=== PATIENT | male | born 1975 | race Caucasian/White ===

== ENCOUNTER 2017-10-02 08:54 | Inpatient (IN) | payer BC ==
[~2017-10-02] VITALS: Ht 177.8 cm; Wt 120.8 kg
--- NOTE | ~2017-10-02 | PR ---
[place], [place] PROGRESS NOTE [id number] UNIT #: [id number] ROOM: 408 DOCTOR: MARILU GOFF MD BIRTHDATE: [birth year] DOS: 10/02/2017 SUBJECTIVE: The patient was seen by Dr. Love yesterday. The patient is paced rhythm. Blood pressure is 115/74. Admitted with a syncopal episode. He is not orthostatic. Hemodynamically stable. The patient had some nausea also. Does not smoke. Does not drink alcohol. He is alert and oriented x3. REVIEW OF SYSTEMS: Noncontributory. A 6-8 systems reviewed. OBJECTIVE: NECK: Supple, no JVD. LUNGS: Diminished breath sounds. HEART: Heart sounds regular. PLAN: Pacemaker appeared to be functioning appropriately. Hemodynamically stable. The patient is to continue the interrogation as ordered. LABORATORY DATA: Hemoglobin 13.7 and hematocrit 26.6. Electrolytes are pending. IMPRESSION: Syncopal episode, etiology is unclear. Pacemaker appears to be functioning normally. ____ not orthostatic. We will follow up. MARILU GOFF MD CM:PNTRANS [id number] MARLIU GOFF MD 10/03/17 1444 interface
--- NOTE | ~2017-10-02 | CON ---
[place], [place] REPORT OF CONSULTATION NAME: CAROLE SHEPPARD [facility] #: [id number] UNIT #: [id number] ROOM: 408 DOCTOR: SAMANTHA RILEY MD BIRTHDATE: [birth year] DOS: 10/02/2017 HISTORY OF PRESENT ILLNESS: This is a 42-year-old -[place] man who had sick sinus syndrome. He had a long asystolic pause with severe bradycardia and in 10/08/2010 a dual chamber [employer] pacemaker was implanted and he had done well. He had lost insurance a few years ago and not had his device interrogated at all. He had been feeling very well without any obvious symptoms whatsoever. However, he woke up this morning, had nausea. He vomited and then later had two watery stools and had fair amount of stool. He had no abdominal pain. He stood up and had a little warning and passed out. There was some lightheadedness and little dizziness. He did not sweat and had no nausea afterwards. Since he has been in the hospital, he has been fine. He does not recall any palpitations, any chest pain or dizziness or weakness. SOCIAL HISTORY: He does not smoke, not does he drink alcoholic beverages and has never used illicit drugs. He works as a dedicated driver. MEDICATIONS: None. PHYSICAL EXAMINATION: GENERAL: This revealed a patient who is very pleasant, alert, oriented, moderately obese. No anemia or thyromegaly at present. VITAL SIGNS: Pulse is 64 and regular, blood pressure 120/75. NECK: Normal JVP. No carotid bruit. HEART: His present cardiac auscultation is unremarkable. EXTREMITIES: There is no edema in the lower extremity. Pedal pulses are fine. RESPIRATORY: Lungs are clear to auscultation. LABORATORY DATA: Unremarkable. DIAGNOSTIC STUDIES: An ECG on admission demonstrated normal sinus rhythm at 67 beats per minute and was minimal criteria for LVH, but no pacemaker activity. The monitor here shows pacing at 60 beats per minute. The device was interrogated and elective replacement period is 6 to 12 months, i.e. end of life. IMPRESSION: I think this patient lost consciousness because of volume depletion from vomiting, but more ____ from diarrhea. Pacemaker is functioning fine and from cardiac standpoint, he should be just ambulated and may be discharged home. His pacemaker needs a closer followup, i.e. interrogation every 2 to 3 months, so that generator can be replaced at the appropriate time. I discussed this with the patient. I thank you for this consult. [place], [place] REPORT OF CONSULTATION NAME: CAROLE SHEPPARD UNIT #: [id number] ROOM: [facility] DOCTOR: SAMANTHA RILEY MD BIRTHDATE: [birth year] SAMANTHA RILEY MD CM:CONSTR:REPORT OF CONSULTATION 01 10/02/179 interface
[~2017-10-02 08:54] MED LIST: AMBIEN10 M1 PO; AMOXICILLIN500 M2 PO; ANAPROX DS550 MG PO; AUGMENTIN 875875 MG PO; B12,B-12,B 12500 MC1 PO; CATAFLAM50 MG PO; CLARITIN10 MG PO; DAYPRO600 M1 PO; DEPAKOTE125 MG PO; DOXYCYCLINE100 M2 PO; FLEXERIL10 MG PO; FLONASE 0.05% 121 EA NAS; IBU800 MG PO; KEFLEX500 MG PO; LOMOTIL 0.025 M1 TA1 PO; LOPRESSOR25 MG PO; MOTRIN800 MG PO; Motrin,Rufen800 MG PO; NAPROSYN500 MG PO; NKHM; NORCO 10-325 T1 EACH PO; PHENERGAN W/ COD5 ML PO; PREDNICOT20 MG PO; ROBAXIN750 MG PO; SERTRALINE HCL50 MG PO; TESSALON PERLE200 MG PO; TRAMADOL HCL50 MG PO; VIBRAMYCIN100 MG PO; VICO10300 PO; VICODIN 5/500 505 MG PO; VICODIN 500 MG-1 TAB PO; VITAMIN B12 1541 TAB PO; VITAMIN D1000 IU PO; XANAX0.25 MG PO; ZITHROMAX Z PA250 MG PO; ZOFRAN ODT4 MG SL; ZYRTEC10 MG PO; Zofran4 MG PO
[2017-10-02 08:57] VITALS: BP 127/78
[2017-10-02 09:28] LABS: BASO % 0.5 % (0.0-1.0); EOS # 0.4 10*3/uL (0.0-0.4); EOS % 5.2 % (1.0-4.0); HEMATOCRIT 42.2 % (42.0-52.0); HEMOGLOBIN 13.5 g/dl (14.0-18.0); LYMPH # 1.7 10*3/uL (1.3-4.4); LYMPH % 22.4 % (27.0-41.0); MEAN CELL VOLUME 84.4 fl (80.0-94.0); MEAN PLATELET VOLUME 10.9 fl (9.6-12.3); MONO # 0.7 10*3/uL (0.1-1.0); NEUT # 4.7 10*3/uL (2.3-7.9); NEUT % 62.6 % (47.0-73.0); PLATELET COUNT AUTOMATED 256 10*3/uL (130-400); RED CELL DISTRI WIDTH 14.1 % (0-14.5); WHITE BLOOD COUNT 7.4 10*3/uL (4.8-10.8)
[2017-10-02 09:37] LABS: ACT PARTIAL THROMBO TIME 21.3 SECONDS (20.8-31.5)
[2017-10-02 09:46] LABS: ALBUMIN 3.1 gm/dl (3.1-4.5); BUN 12 mg/dl (7-24); CHLORIDE 106 mmol/L (98-107); LIPASE 105 U/L (73-393); POTASSIUM 3.9 mmol/L (3.5-5.1); SGOT/AST 17 IU/L (3-35); SGPT/ALT 15 U/L (12-78); SODIUM 139 mmol/L (136-145)
[2017-10-02 09:48] LABS: ALKALINE PHOSPHATASE 79 U/L (45-117)
[2017-10-02 09:49] LABS: TROPONIN I < 0.015 ng/ml (<0.045)
[2017-10-02 10:30] VITALS: BP 131/97
[2017-10-02 12:00] VITALS: BP 123/75
[2017-10-02 16:00] VITALS: BP 120/75
[2017-10-02 20:00] VITALS: BP 150/78
[2017-10-03 00:35] VITALS: BP 115/74
[2017-10-03 06:59] LABS: BASO # 0.1 10*3/uL (0.0-0.1); BASO % 0.8 % (0.0-1.0); EOS # 0.4 10*3/uL (0.0-0.4); EOS % 5.8 % (1.0-4.0); HEMATOCRIT 43.6 % (42.0-52.0); HEMOGLOBIN 13.7 g/dl (14.0-18.0); LYMPH # 1.7 10*3/uL (1.3-4.4); LYMPH % 28.7 % (27.0-41.0); MEAN CELL VOLUME 84.7 fl (80.0-94.0); MEAN CORPUSCULAR HGB 26.6 pg (27.0-31.0); MEAN CORPUSCULAR HGB CONC 31.4 g/dl (33.0-37.0); MEAN PLATELET VOLUME 10.9 fl (9.6-12.3); MONO # 0.5 10*3/uL (0.1-1.0); MONO % 7.9 % (3.0-9.0); NEUT # 3.4 10*3/uL (2.3-7.9); NEUT % 56.5 % (47.0-73.0); PLATELET COUNT AUTOMATED 207 10*3/uL (130-400); RED BLOOD COUNT 5.15 10*6/uL (4.50-5.90); WHITE BLOOD COUNT 6.1 10*3/uL (4.8-10.8)
[2017-10-03 07:31] LABS: BUN 8 mg/dl (7-24); CHLORIDE 107 mmol/L (98-107); CREATININE 0.75 mg/dL (0.70-1.30); POTASSIUM 3.6 mmol/L (3.5-5.1); SGOT/AST 13 IU/L (3-35); SGPT/ALT 13 U/L (12-78); SODIUM 141 mmol/L (136-145)
[2017-10-03 07:38] LABS: ALKALINE PHOSPHATASE 79 U/L (45-117); CHOLESTEROL 119 mg/dL (<200); HDL CHOLESTEROL 47 mg/dl (40-60); LDL CHOLESTEROL 64 mg/dL (9-159); PHOSPHOROUS 2.2 mg/dL (2.5-4.9); TOTAL PROTEIN 6.6 gm/dL (6.4-8.2); TRIGLYCERIDES 39 mg/dl (<150); VLDL CHOLESTEROL 8 mg/dL (6-40)
[2017-10-03 08:00] VITALS: BP 118/76
[2017-10-03 09:41] LABS: VITAMIN D, 25-HYDROXY 12.2 ng/mL (30-100)
== END 2017-10-03 10:25 | disposition home or self-care (01) | DRG 312 ==
LOC: ED 08:54 → EDHOLD 09:58 → 4E 09:58
PROVIDERS: Nurse Practitioner Family; Registered Nurse
PROC: 4B02XSZ Measurement of Cardiac Pacemaker, External Approach (ICD-10-PCS; principal; 2017-10-02)
DX: R55 Syncope and collapse (principal); E66.9 Obesity, unspecified; K52.9 Noninfective gastroenteritis and colitis, unspecified; Z68.38 Body mass index [BMI] 38.0-38.9, adult; Z88.8 Allergy status to other drugs, medicaments and biological substances; Z86.73 Personal history of transient ischemic attack (TIA), and cerebral infarction without residual deficits; Z95.0 Presence of cardiac pacemaker; Z90.49 Acquired absence of other specified parts of digestive tract; Z82.49 Family history of ischemic heart disease and other diseases of the circulatory system

== ENCOUNTER 2023-01-28 21:21 | Emergency (ER) | payer MEDICAID ==
[~2023-01-28] VITALS: Ht 177.8 cm; Wt 136.1 kg
[2023-01-28 22:01] LABS: BASO # 0.1 10*3/uL (0.0-0.1); BASO % 0.7 % (0.0-1.0); EOS # 0.5 10*3/uL (0.0-0.4); HEMATOCRIT 45.6 % (42.0-52.0); LYMPH # 1.5 10*3/uL (1.3-4.4); LYMPH % 17.6 % (27.0-41.0); MEAN CELL VOLUME 83.1 fl (80.0-94.0); MEAN CORPUSCULAR HGB 26.2 pg (27.0-31.0); MEAN CORPUSCULAR HGB CONC 31.6 g/dl (33.0-37.0); MONO % 11.9 % (3.0-9.0); NEUT # 5.3 10*3/uL (2.3-7.9); NEUT % 62.2 % (47.0-73.0); PLATELET COUNT AUTOMATED 271 10*3/uL (130-400); RED BLOOD COUNT 5.49 10*6/uL (4.50-5.90); RED CELL DISTRI WIDTH 15.6 % (0-14.5); WHITE BLOOD COUNT 8.6 10*3/uL (4.8-10.8)
[2023-01-28 22:24] LABS: ALKALINE PHOSPHATASE 74 U/L (46-116); BUN 6 mg/dl (9-23); CHLORIDE 107 mmol/L (98-107); POTASSIUM 3.7 mmol/L (3.4-5.1); SGPT/ALT 9 U/L (10-49); TOTAL PROTEIN 6.9 gm/dL (6.0-8.0)
[2023-01-28 23:02] VITALS: BP 106/77
== END 2023-01-28 23:04 | disposition home or self-care (01) ==
LOC: ED 21:21
PROVIDERS: Nurse Practitioner Family
DX: U07.1 COVID-19 (principal); Z88.6 Allergy status to analgesic agent; Z88.8 Allergy status to other drugs, medicaments and biological substances; Z90.49 Acquired absence of other specified parts of digestive tract; Z95.0 Presence of cardiac pacemaker

== ENCOUNTER 2024-05-13 08:22 | Inpatient (IN) | payer MEDICAID ==
[~2024-05-13] VITALS: Ht 178 cm; Wt 143.8 kg
[2024-05-13] VITALS (7 sets, daily range): BP systolic 116–155; BP diastolic 63–93
[2024-05-13] MEDS ORDERED: fentaNYL CITRATE/PF 50 MCG/ML SYRINGE IV ONE ×2 (08:45→11:05)
[2024-05-13] MEDS ORDERED: IOHEXOL 300 MG/ML 100 ML VIAL IV ONE (08:45)
[2024-05-13] MEDS ORDERED: SODIUM CHLORIDE 0.9% 500 ML IV ONE (08:45)
[2024-05-13 09:02] LABS: BASO # 0.1 10*3/uL (0.0-0.1); BASO % 0.8 % (0.0-1.0); EOS # 0.6 10*3/uL (0.0-0.4); EOS % 6.9 % (1.0-4.0); HEMATOCRIT 44.9 % (42.0-52.0); MEAN CELL VOLUME 84.1 fl (80.0-94.0); MEAN PLATELET VOLUME 10.7 fl (9.6-12.3); MONO # 0.9 10*3/uL (0.1-1.0); MONO % 9.7 % (3.0-9.0); NEUT # 5.8 10*3/uL (2.3-7.9); NEUT % 62.7 % (47.0-73.0); PLATELET COUNT AUTOMATED 275 10*3/uL (130-400); RED BLOOD COUNT 5.34 10*6/uL (4.50-5.90); RED CELL DISTRI WIDTH 15.4 % (0-14.5); WHITE BLOOD COUNT 9.2 10*3/uL (4.8-10.8)
[2024-05-13 09:13] LABS: ACT PARTIAL THROMBO TIME 26.5 SECONDS (20.0-32.1)
[2024-05-13 09:37] LABS: ALKALINE PHOSPHATASE 81 U/L (46-116); BUN 12 mg/dl (9-23); CHLORIDE 105 mmol/L (98-107); LIPASE 28 U/L (12-53); POTASSIUM 3.9 mmol/L (3.4-5.1); SGPT/ALT 15 U/L (5-49); TOTAL PROTEIN 6.7 gm/dL (6.0-8.0)
[2024-05-13] MEDS ORDERED: ACETAMINOPHEN 100 ML IV ONE (13:22)
[2024-05-13] MEDS ORDERED: BUPIVACAINE 0.5% 50 ML VIAL ONE (13:49)
[2024-05-13] MEDS ORDERED: ceFAZolin sodium/sodium chlor 30 ML IV ONE (14:11)
[2024-05-13] MEDS ORDERED: Acetaminophen/Oxycodone 5 MG/325 MG TABLET PO PRN (14:55)
[2024-05-13] MEDS ORDERED: HYDROMORPHONE IV PRN (15:40)
[2024-05-13] MEDS ORDERED: HYDROmorphONE Hydrochloride 0.5 MG/0.5 ML SYRINGE IV PRN (15:50)
[2024-05-13] MEDS ORDERED: HYDROmorphONE Hydrochloride 1 ML IV ONE (16:20)
[2024-05-13] MEDS ORDERED: ASPIRIN CHEWABL81 MG PO (19:40)
[2024-05-13] MEDS ORDERED: Magnesium Hydroxide 30 ML UDC PO PRN (20:25)
[2024-05-13] MEDS ORDERED: Ondansetron Hydrochloride 4 MG/2 ML VIAL IV PRN (20:25)
[2024-05-13] MEDS ORDERED: BISACODYL 10 MG SUPP R PRN (20:25)
[2024-05-13] MEDS ORDERED: BISACODYL 5 MG TAB PO PRN (20:25)
[2024-05-13] MEDS ORDERED: Ketorolac Tromethamine 15 MG/ML VIAL IV PRN (20:30)
[2024-05-14] VITALS: BP 113/71; BP 122/68
[2024-05-14 06:43] LABS: BASO % 0.1 % (0.0-1.0); EOS % 0.1 % (1.0-4.0); HEMATOCRIT 43.2 % (42.0-52.0); MEAN CELL VOLUME 86.1 fl (80.0-94.0); MEAN CORPUSCULAR HGB 26.3 pg (27.0-31.0); MEAN CORPUSCULAR HGB CONC 30.6 g/dl (33.0-37.0); MONO # 0.8 10*3/uL (0.1-1.0); MONO % 6.5 % (3.0-9.0); NEUT # 10.6 10*3/uL (2.3-7.9); PLATELET COUNT AUTOMATED 258 10*3/uL (130-400); RED BLOOD COUNT 5.02 10*6/uL (4.50-5.90); RED CELL DISTRI WIDTH 15.3 % (0-14.5); WHITE BLOOD COUNT 12.9 10*3/uL (4.8-10.8)
[2024-05-14 07:33] LABS: BUN 11 mg/dl (9-23); CHLORIDE 105 mmol/L (98-107); POTASSIUM 4.4 mmol/L (3.4-5.1)
[2024-05-14 08:00] VITALS: BP 115/75
[2024-05-14] MEDS ORDERED: COLACE100 MG PO (08:12)
[2024-05-14] MEDS ORDERED: HYDROCODONE-AC1 EAC1 PO (08:12)
[2024-05-16] MEDS ORDERED: Dexamethasone Sodium Phospha 4 MG/ML VIAL IV ONE (10:44)
[2024-05-16] MEDS ORDERED: ROCURONIUM BROMIDE 50 MG/5 ML SYRINGE IV ONE (10:44)
[2024-05-16] MEDS ORDERED: SEVOFLURANE 250 ML BOT INH ONE (10:44)
[2024-05-16] MEDS ORDERED: fentaNYL CITRATE 100 MCG/2 ML VIAL IV ONE (10:44)
[2024-05-16] MEDS ORDERED: MIDAZOLAM HCL IN 0.9 % NACL/PF 50 MG/50 ML PLAST..BAG IV ONE (10:44)
[2024-05-16] MEDS ORDERED: PROPOFOL 200 MG/20 ML VIAL IV ONE (10:44)
[2024-05-16] MEDS ORDERED: SUGAMMADEX SODIUM 200 MG/2 ML VIAL IV ONE (10:44)
[2024-05-16] MEDS ORDERED: Ondansetron Hydrochloride 4 MG/2 ML VIAL IV ONE (10:44)
[2024-05-16] MEDS ORDERED: Lidocaine Hydrochloride 2% 5 ML SDV IV ONE (10:44)
[2024-05-16] MEDS ORDERED: Ketorolac Tromethamine 30 MG/ML VIAL IV ONE (10:44)
== END 2024-05-14 10:13 | disposition home or self-care (01) | DRG 354 ==
LOC: ED 08:22 → 4E 12:58 → EDHOLD 12:58 → 4E 13:22
PROVIDERS: Emergency Medicine; ADMIT Internal Medicine; ATTEND Internal Medicine
PROC: 0WUF4JZ Supplement Abdominal Wall with Synthetic Substitute, Percutaneous Endoscopic Approach (ICD-10-PCS; principal; 2024-05-13)
DX: K43.0 Incisional hernia with obstruction, without gangrene (principal); E44.1 Mild protein-calorie malnutrition; E87.20 Acidosis, unspecified; Z68.42 Body mass index [BMI] 45.0-49.9, adult; R73.9 Hyperglycemia, unspecified; R56.9 Unspecified convulsions; I49.5 Sick sinus syndrome; D64.9 Anemia, unspecified; K76.0 Fatty (change of) liver, not elsewhere classified; D50.9 Iron deficiency anemia, unspecified; E66.01 Morbid (severe) obesity due to excess calories; Z95.0 Presence of cardiac pacemaker; Z88.8 Allergy status to other drugs, medicaments and biological substances; Z79.82 Long term (current) use of aspirin; Z90.49 Acquired absence of other specified parts of digestive tract; Z79.1 Long term (current) use of non-steroidal anti-inflammatories (NSAID); Z88.5 Allergy status to narcotic agent

== ENCOUNTER 2024-07-11 09:54 | Emergency (ER) | payer MEDICAID ==
[~2024-07-11] VITALS: Wt 136.1 kg
[~2024-07-11 09:54] MED LIST changes: +ASPIRIN CHEWABL81 MG PO; +COLACE100 MG PO; +HYDROCODONE-AC1 EAC1 PO
[2024-07-11 10:06] VITALS: BP 118/77
[2024-07-11] MEDS ORDERED: AVPAK AZITHROM250 M1 PO (10:17)
== END 2024-07-11 10:35 | disposition home or self-care (01) ==
LOC: ED 09:54
DX: J40 Bronchitis, not specified as acute or chronic (principal); R42 Dizziness and giddiness; Z88.8 Allergy status to other drugs, medicaments and biological substances; Z79.82 Long term (current) use of aspirin; Z90.49 Acquired absence of other specified parts of digestive tract; Z95.5 Presence of coronary angioplasty implant and graft

== ENCOUNTER 2024-08-28 11:05 | Emergency (ER) | payer MEDICAID ==
[~2024-08-28] VITALS: Ht 177.8 cm; Wt 147.9 kg
[~2024-08-28 11:05] MED LIST changes: +AVPAK AZITHROM250 M1 PO
[2024-08-28 11:27] VITALS: BP 113/73
[2024-08-28] MEDS ORDERED: METHYLPRED-DP4 MG PO (11:29)
[2024-08-28] MEDS ORDERED: BUPROPION HYDR150 M3 PO (11:29)
[2024-08-28] MEDS ORDERED: CYCLOBENZAPRINE5 M3 PO (11:39)
[2024-08-28] MEDS ORDERED: NAPROSYN500 MG PO (11:39)
[2024-08-28] MEDS ORDERED: PREDNISONE50 MG PO (11:39)
[2024-08-28] MEDS ORDERED: methylPREDNISolone sod succ 125 MG VIAL IM ONE (11:40)
[2024-08-28] MEDS ORDERED: Ketorolac Tromethamine 30 MG/ML VIAL IM ONE (11:40)
== END 2024-08-28 11:36 | disposition home or self-care (01) ==
LOC: ED 11:05
DX: S33.5XXA Sprain of ligaments of lumbar spine, initial encounter (principal); I10 Essential (primary) hypertension; F32.A Depression, unspecified; Z79.899 Other long term (current) drug therapy; Z88.8 Allergy status to other drugs, medicaments and biological substances; Z90.49 Acquired absence of other specified parts of digestive tract; X50.0XXA Overexertion from strenuous movement or load, initial encounter; Y93.89 Activity, other specified; Y92.89 Other specified places as the place of occurrence of the external cause; Y99.0 Civilian activity done for income or pay

== ENCOUNTER 2024-09-13 16:38 | Emergency (ER) | payer MEDICAID ==
[~2024-09-13] VITALS: Ht 177.8 cm; Wt 145.1 kg
[~2024-09-13 16:38] MED LIST changes: +BUPROPION HYDR150 M3 PO; +CYCLOBENZAPRINE5 M3 PO; +METHYLPRED-DP4 MG PO; +PREDNISONE50 MG PO
[2024-09-13 16:58] VITALS: BP 143/79
[2024-09-13] MEDS ORDERED: traMADol Hydrochloride 50 MG TAB PO ONE (20:45)
[2024-09-13] MEDS ORDERED: Dexamethasone Sodium Phospha 20 MG/5 ML VIAL IM ONE (22:20)
[2024-09-13] MEDS ORDERED: PREDNISONE50 MG PO (22:29)
== END 2024-09-13 23:17 | disposition home or self-care (01) ==
LOC: ED 16:38
DX: M79.89 Other specified soft tissue disorders (principal); R06.02 Shortness of breath; Z88.8 Allergy status to other drugs, medicaments and biological substances; Z90.49 Acquired absence of other specified parts of digestive tract; Z98.890 Other specified postprocedural states

== ENCOUNTER 2024-10-22 06:35 | Emergency (ER) | payer MEDICAID ==
[~2024-10-22] VITALS: Ht 177.8 cm; Wt 145.1 kg
[2024-10-22 06:43] VITALS: BP 120/78
[2024-10-22] MEDS ORDERED: traMADol Hydrochloride 50 MG TAB PO ONE (07:00)
[2024-10-22] MEDS ORDERED: MELOXICAM15 MG PO (07:49)
== END 2024-10-22 07:58 | disposition home or self-care (01) ==
LOC: ED 06:35
DX: M25.562 Pain in left knee (principal); I10 Essential (primary) hypertension; F32.A Depression, unspecified; Z79.899 Other long term (current) drug therapy; Z88.8 Allergy status to other drugs, medicaments and biological substances; Z90.49 Acquired absence of other specified parts of digestive tract

== ENCOUNTER 2024-11-21 06:30 | Emergency (ER) | payer MEDICAID ==
[~2024-11-21] VITALS: Ht 177.8 cm; Wt 142.9 kg
[~2024-11-21 06:30] MED LIST changes: +MELOXICAM15 MG PO
[2024-11-21 07:51] VITALS: BP 126/68
== END 2024-11-21 09:05 | disposition home or self-care (01) ==
LOC: ED 06:30
DX: M54.2 Cervicalgia (principal); M54.6 Pain in thoracic spine; M54.50 Low back pain, unspecified; M25.561 Pain in right knee; M25.562 Pain in left knee; I10 Essential (primary) hypertension; F32.A Depression, unspecified; Z79.899 Other long term (current) drug therapy; Z88.5 Allergy status to narcotic agent; Z88.8 Allergy status to other drugs, medicaments and biological substances; Z90.49 Acquired absence of other specified parts of digestive tract; W10.8XXA Fall (on) (from) other stairs and steps, initial encounter; Y93.89 Activity, other specified; Y92.89 Other specified places as the place of occurrence of the external cause; Y99.8 Other external cause status

== ENCOUNTER 2024-11-28 06:14 | Observation (INO) | payer MEDICAID ==
[~2024-11-28] VITALS: Ht 177.8 cm; Wt 145.1 kg
[2024-11-28 06:26] VITALS: BP 120/71
[2024-11-28 06:48] LABS: BASO # 0.0 10*3/uL (0.0-0.1); BASO % 0.5 % (0.0-1.0); EOS # 0.5 10*3/uL (0.0-0.4); EOS % 5.7 % (1.0-4.0); MEAN CELL VOLUME 85.7 fl (80.0-94.0); MEAN CORPUSCULAR HGB 26.6 pg (27.0-31.0); MEAN PLATELET VOLUME 10.5 fl (9.6-12.3); MONO # 0.8 10*3/uL (0.1-1.0); MONO % 8.6 % (3.0-9.0); NEUT # 5.5 10*3/uL (2.3-7.9); NEUT % 62.6 % (47.0-73.0); NUCLEATED RED BLOOD CELL 0.0 % (0.0-0.0); NUCLEATED RED BLOOD CELL 0.0 10*3/uL (0.0-0.0); PLATELET COUNT AUTOMATED 275 10*3/uL (130-400); RED CELL DISTRI WIDTH 14.6 % (0-14.5)
[2024-11-28 07:09] LABS: BUN 8 mg/dl (9-23); SGPT/ALT 11 U/L (5-49)
[2024-11-28 07:30] VITALS: BP 121/67
[2024-11-28] MEDS ORDERED: ACETAMINOPHEN 325 MG TAB PO PRN (08:50)
[2024-11-28] MEDS ORDERED: BISACODYL 10 MG SUPP R PRN (08:50)
[2024-11-28] MEDS ORDERED: BISACODYL 5 MG TAB PO PRN (08:50)
[2024-11-28] MEDS ORDERED: ASPIRIN 325 MG ENTERIC COATED PO ONE (09:00)
[2024-11-28] MEDS ORDERED: ALLERGY RELIEF10 M2 PO (09:04)
[2024-11-28] MEDS ORDERED: Technetium Tc 99M Tetrofosmi 0.23 MG KIT IJ SCH ×2 (09:25→09:35)
[2024-11-28] MEDS ORDERED: METOPROLOL SUCCINATE XR 25 MG TAB PO SCH (10:00)
[2024-11-28 13:01] VITALS: BP 116/69
[2024-11-28] MEDS ORDERED: PERFLUTREN PROTEIN-A MICROSPHR 3 ML VIAL IV ONE (14:44)
[2024-11-28 16:54] VITALS: BP 114/67
[2024-11-28 17:15] VITALS: BP 119/83
[2024-11-28 20:00] VITALS: BP 108/63
[2024-11-28] MEDS ORDERED: ATORVASTATIN CALCIUM 40 MG TABLET PO SCH (22:00)
[2024-11-29] VITALS: BP 100/48
[2024-11-29 05:13] LABS: BUN 10 mg/dl (9-23); FREE T4 1.06 ng/dl (0.89-1.76); LDL CHOLESTEROL 85 mg/dL (9-159); SGPT/ALT 11 U/L (5-49)
[2024-11-29 05:55] LABS: BASO # 0.1 10*3/uL (0.0-0.1); BASO % 0.5 % (0.0-1.0); EOS # 0.4 10*3/uL (0.0-0.4); EOS % 3.9 % (1.0-4.0); MEAN CELL VOLUME 85.7 fl (80.0-94.0); MEAN CORPUSCULAR HGB 26.2 pg (27.0-31.0); MEAN PLATELET VOLUME 11.0 fl (9.6-12.3); MONO # 1.0 10*3/uL (0.1-1.0); MONO % 9.4 % (3.0-9.0); NEUT # 7.4 10*3/uL (2.3-7.9); NEUT % 67.5 % (47.0-73.0); NUCLEATED RED BLOOD CELL 0.0 10*3/uL (0.0-0.0); NUCLEATED RED BLOOD CELL 0.3 % (0.0-0.0); PLATELET COUNT AUTOMATED 254 10*3/uL (130-400); RED CELL DISTRI WIDTH 14.6 % (0-14.5)
[2024-11-29] MEDS ORDERED: Regadenoson 0.4 MG/5 ML SYR IV ONE (06:26)
[2024-11-29 07:04] LABS: VITAMIN D, 25-HYDROXY 29.7 ng/mL (30-100)
[2024-11-29 08:00] VITALS: BP 114/55
[2024-11-29] MEDS ORDERED: ASPIRIN ENTERIC COATED 81 MG TAB PO SCH (10:00)
[2024-11-29 12:00] VITALS: BP 117/65
[2024-11-29] MEDS ORDERED: LOPRESSOR25 MG PO (13:10)
[2024-11-29] MEDS ORDERED: ATORVASTATIN CA40 M1 PO (13:10)
[2024-11-29] MEDS ORDERED: ASPIRIN ADULT L81 M2 PO (13:10)
== END 2024-11-29 14:08 | disposition home or self-care (01) ==
LOC: ED 06:14 → EDHOLD 08:12 → 4E 16:48
PROVIDERS: Emergency Medicine; ADMIT Internal Medicine; ATTEND Internal Medicine
DX: M94.0 Chondrocostal junction syndrome [Tietze] (principal); G40.909 Epilepsy, unspecified, not intractable, without status epilepticus; R06.02 Shortness of breath; M25.562 Pain in left knee; R73.9 Hyperglycemia, unspecified; D64.9 Anemia, unspecified; R00.1 Bradycardia, unspecified; E44.0 Moderate protein-calorie malnutrition; Z88.5 Allergy status to narcotic agent; Z88.8 Allergy status to other drugs, medicaments and biological substances; Z79.899 Other long term (current) drug therapy; Z90.49 Acquired absence of other specified parts of digestive tract; Z68.41 Body mass index [BMI] 40.0-44.9, adult; Z95.0 Presence of cardiac pacemaker